=== PATIENT | female | born 1955 | race Caucasian/White ===

== ENCOUNTER 2023-10-23 05:35 | Day surgery (SDC) | payer MEDICARE, BC ==
[2023-10-10 10:34] VITALS: BP 165/92
[~2023-10-23] VITALS: Ht 167.6 cm; Wt 102.7 kg
[~2023-10-23 05:35] MED LIST: ASPIRIN EC81 MG PO; CALCIUM-MAGNES1 EAC1 PO; CALCIUM500 MG PO; IRON325 M1 PO; LACTATED RINGER'S 1,000 ML IV SCH; LISINOPRIL-HCT1 EAC1 PO; LORATADINE10 MG PO; MEGANATURAL-BP150 MG PO; MULTIVITAMINS1 EAC8 PO; PRAVACHOL40 MG PO; PRESERVISION A1 EAC3 PO; TOPROL XL25 MG PO; VITAMIN C500 M1 PO; VITAMIN E400 UNI1 PO
[2023-10-23 06:04] VITALS: BP 125/62
[2023-10-23] MEDS ORDERED: CEFAZOLIN SODIUM 2 GM/20 ML SYR ONE (06:24)
[2023-10-23] MEDS ORDERED: DEXAMETHASONE SOD PHOS 4 MG/ML VIAL ONE ×2 (06:40→07:23)
[2023-10-23] MEDS ORDERED: LIDOCAINE HCL 2% 5 ML SDV ONE (06:40)
[2023-10-23] MEDS ORDERED: dexmedeTOMIDine HCl 200 MCG/2 ML VIAL ONE (06:40)
[2023-10-23] MEDS ORDERED: MIDAZOLAM HCL 2 MG/2 ML VIAL ONE (06:40)
[2023-10-23] MEDS ORDERED: propofoL 200 MG/20 ML VIAL ONE ×2 (06:40→08:03)
[2023-10-23] MEDS ORDERED: SODIUM CHLORIDE 0.9% 20 ML IV ONE (06:41)
[2023-10-23] MEDS ORDERED: Ropivacaine HCl 0.5% 30 ML VIAL ONE (06:41)
[2023-10-23] MEDS ORDERED: PANTOPRAZOLE SODIUM 40 MG TABEC PO SCH (07:00)
[2023-10-23] MEDS ORDERED: ROPIVACAINE IN 0.9% SOD CHL/PF 545 ML ELS.PMP.HR IRRIGATION SCH (07:00)
[2023-10-23] MEDS ORDERED: OXYCODONE HCL 5 MG TAB PO PRN (07:00)
[2023-10-23] MEDS ORDERED: OXYCODONE HCL 5 MG TAB PO SCH (07:00)
[2023-10-23] MEDS ORDERED: GABAPENTIN 600 MG TAB PO SCH (07:00)
[2023-10-23] MEDS ORDERED: CEFAZOLIN SODIUM 2 GM/20 ML SYR IV SCH ×2 (07:00→15:00)
[2023-10-23] MEDS ORDERED: LIDOCAINE HCL 1% 5 ML SDV INJ ONE (07:00)
[2023-10-23] MEDS ORDERED: TRANEXAMIC ACID 2,000 MG in SODIUM CHLORIDE 0.9% 100 ML IV SCH (07:00)
[2023-10-23] MEDS ORDERED: ondansetron HCL 4 MG TAB PO SCH (07:00)
[2023-10-23] MEDS ORDERED: IBLOOD GLUCOSE TEST STRIP 1 EA TEST VI PRN (07:00)
[2023-10-23] MEDS ORDERED: KETOROLAC TROMETHAMINE 30 MG/ML VIAL IV PRN (07:00)
[2023-10-23] MEDS ORDERED: INTRA-ARTICULAR ANALGESIC INJECTION XX SCH (07:00)
[2023-10-23] MEDS ORDERED: ePHEDrine sulfate 50 MG/ML AMP ONE (07:27)
--- NOTE | 2023-10-23 07:29 | NUR ---
UNABLE TO VISIT DURING SPIRITUAL CARE ROUNDS; PT GONE FOR PROCEDURE. PROVIDED PRAYER.
[2023-10-23] MEDS ORDERED: Ropivacaine HCl 20 MG/10 ML AMP ONE (07:37)
[2023-10-23] MEDS ORDERED: CEFUROXIME250 MG PO (08:40)
[2023-10-23] MEDS ORDERED: XARELTO10 MG PO (08:41)
[2023-10-23] MEDS ORDERED: ACETAMINOPHEN500 MG PO (08:41)
[2023-10-23] MEDS ORDERED: OXYCODONE HCL5 MG PO (08:41)
[2023-10-23] MEDS ORDERED: GABAPENTIN300 MG PO (08:41)
[2023-10-23] MEDS ORDERED: GABAPENTIN 300 MG CAP PO SCH (09:00)
[2023-10-23 09:32] VITALS: BP 1114/59
--- NOTE | 2023-10-23 09:37 | NUR ---
10/23/23 0937 Nathalie Melvin 0882 PT ARRIVED IN PACU SLEEPY WITH NON C/O'S. ON QUE SET AT 4ML/HR FROM SURGERY. 0900 CRYO CUFF PLACED ON L KNEE. 914 XRAY DONE. NO C/O'S. TAKING SIPS OF WATER. 09 TO DS. REPORT GIVEN TO RN. SISTER AT BEDSIDE.
--- NOTE | 2023-10-23 09:41 | NUR ---
0932-PT BACK TO ROOM FROM PACU ON . RECEIVED REPORT FROM JOVANA POOLE. PT IS AWAKE. RESP EVEN AND UNLABORED. DENIES PAIN AND NAUSEA. DRESSING IS CLEAN, DRY, AND INTACT. CRYO CUFF IN PLACE AND RUNNING. ON-Q PUMP SET AT 4. FAMILY IN ROOM. PROIVDED PT WITH WATER. NO OTHER NEEDS AT THIS TIME. CALL LIGHT WITHIN REACH.
[2023-10-23] MEDS ORDERED: TRANEXAMIC ACID IN NACL,ISO-OS 1,000 MG/100 ML PIGGYBACK IV ONE (09:59)
[2023-10-23 10:36] VITALS: BP 126/69
--- NOTE | 2023-10-23 10:45 | NUR ---
PT LAYING IN BED TALKING WITH FAMILY. RESP EVEN AND UNLABORED. DENIES PAIN AND NAUSEA. DRESSING IS CLEAN, DRY, AND INTACT. ON-Q PUMP SET AT 4. CRYO CUFF IN PLACE AND RUNNING. PT DRINKING WATER. NO OTHER NEEDS AT THIS TIME. CALL LIGHT WITHIN REACH.
--- NOTE | 2023-10-23 11:51 | NUR ---
LE 1135-PT IN PATIENT'S ROOM. LE 1140-PT VOIDS 25ML OF YELLOW URINE.
--- NOTE | 2023-10-23 11:54 | NUR ---
PT BACK TO ROOM FROM PHYSICAL THERAPY.
[2023-10-23 11:57] VITALS: BP 118/65
--- NOTE | 2023-10-23 12:04 | NUR ---
1157-PATIENT SITTING UP IN BED. RESP EVEN AND UNLABORED. DENIES PAIN AND NAUSEA. DRESSING IS CLEAN, DRY, AND INTACT. ON-Q PUMP SET AT 4. CRYO CUFF IN PLACE AND RUNNING. LUNCH DELIVERED. WARM BLANKET PROVIDED. FAMILY IN ROOM. CALL LIGHT WITHIN REACH.
[2023-10-23 12:54] VITALS: BP 117/53
--- NOTE | 2023-10-23 12:54 | NUR ---
INTO PTS ROOM FOR ROUTINE REASSESMENT. VSS. PT DENIES PAIN WHEN ASKED WELL DENIES NAUSEA. PT HAS TOLERATED PO FLUIDS AND FOOD W/O ISSUES. PTS FRIEND/FAMILY AT BEDSIDE. ON-Q PUMP REMAINS IN PLACE. DENISEG CDI. PT ASSISTED TO EDGE OF BED AND TO STANDING POSITION WITH NURSE SBA ASSIST. PT AMBULATED WITH FWW TO RESTROOM. PT VOIDED APPROX 50ML OF CLR, YELLOW URINE. PT AMBULATED BACK TO BED WITH FWW AND NURSE SBA. FOOT PUMPS AND CRYO CUFF PLACED. HEEL PROTECTORS ALSO IN PLACE. CALL LIGHT PLACED WITHIN PT REACH. WATER REFILLED. PT DENIES ANY FURTHER NEEDS OR QUESTIONS AT THIS TIME.
[2023-10-23 14:05] VITALS: BP 108/54
--- NOTE | 2023-10-23 14:48 | OR ---
[facility] [address] [place], [place] [address] Signed DATE OF OPERATION: 10/23/2023 SURGEON: Taryn Shepard MD PREOPERATIVE DIAGNOSIS: Severe degenerative joint disease, left knee. POSTOPERATIVE DIAGNOSIS: Severe degenerative joint disease, left knee. PROCEDURE PERFORMED: Left total knee arthroplasty with Harpal. VICE PRESIDENT OF PRODUCT MARKETING: Silvia John PA-C. Silvia was present and critical for all portions of procedure. ANESTHESIA: Spinal. BLOOD LOSS: 175 mL. TOURNIQUET TIME: Zero. IMPLANTS: Rajesh Triathlon size 5 femur, 4 tibia, 10 mm polyethylene, 32 mm patella. BRIEF HISTORY: Taya is a 68-year-old female with progressive worsening of arthritis primarily in the patellofemoral medial compartments. She had failed nonoperative treatment and wished to proceed with knee replacement. Risks, benefits, and alternatives were discussed at length and she understood and wished to proceed. DESCRIPTION OF PROCEDURE: Once consent was obtained, she was taken to the operating room. After adequate anesthesia, she was placed on the operating room table with the left hip bump. The leg was prepped and draped in a standard sterile fashion. No tourniquet was placed. The knee was approached through a standard anterior midline incision, carried through the Electronically Signed By: TARYN SHEPARD MD 10/23/23 1448 PATIENT NAME: TAYA REYES OPERATIVE REPORT DATE OF : 51 REPORT #: [id number] PHYSICIAN: TARYN SHEPARD MD PCP: TERESITA VALENZUELA MD REPORT IS CONFIDENTIAL AND NOT TO BE RELEASED WITHOUT AUTHORIZATION [facility] [address], [place] [address] Signed skin and subcutaneous tissue. A low midvastus approach was undertaken and the MCL was elevated as a sleeve around to the posteromedial corner. The infrapatellar fat pad was fairly fibrotic and was removed. The patella was then mobilized laterally. The anterior horns of the menisci were transected. ACL was transected. PCL was found to be intact. The guide pin for the Harpal array was placed in the medial femoral condyle and proximal tibia. We did notice some excessive synovium in the suprapatellar pouch. On pulling on this, we delivered a large synovial mass about 3 inches across, place 6 inches along with the pedicle to anterolateral synovium. This was transected and sent off to pathology. The leg was then registered with the computer and the fine anatomic points of the knee were registered. The knee was then taken through the four poses and ligamentous laxity was assessed and adjustments were made to the tibia and femur. Once this was completed, the robot was brought in. The four straight cuts and two angle cuts were made with care taken to protect the patellar tendon and MCL. The bony remnants were removed as were any remaining osteophytes. The large posteromedial osteophyte was removed off the posterior femur. No posterior release was performed. The lateral side only had a very small osteophyte to remove. The trials were then positioned with a 10 mm polyethylene, this was switched to an 11, which gave good ligamentous stability. The leg was taken from 0 to 120 degrees of flexion with good patellar tracking. The patella was then cut sized and drilled for a 32 mm patella. The distal femoral drill holes finished and the proximal tibia was finished using the keel punch followed by the four drill holes. The prosthesis was obtained and the tibia was impacted until it was seated and flushed. The polyethylene was snapped into position and the femur was impacted until it was flushed. The knee was extended and loaded. The patella was clamped into position and the clamp was removed. Again, patellar tracking was checked and found to be adequate. The knee was then irrigated with Irrisept followed by normal saline. The periarticular soft tissues were injected with 100 mL of ropivacaine and Toradol mixture. The On-Q pain pump was percutaneously placed into the adductor canal from the suprapatellar pouch. The arthrotomy was then closed using #2 FiberWire followed by #2 Stratafix, subcutaneous tissue with 0 Stratafix and the skin with 3-0 Stratafix. Wound was sealed with LiquiBand and Steri-Strips. The wound was dressed with Acticoat-7 dressing, ABD, and David wrap. She tolerated the procedure well. All sponge, needle, and instrument counts were correct. Taryn Shepard MD BA/MODL /[id number] Electronically Signed By: TARYN SHEPARD MD 10/23/23 1448 PATIENT NAME: TAYA REYES OPERATIVE REPORT DATE OF : 51 REPORT #: [id number] PHYSICIAN: TARYN SHEPARD MD PCP: TERESITA VALENZUELA MD REPORT IS CONFIDENTIAL AND NOT TO BE RELEASED WITHOUT AUTHORIZATION [address] [address] Signed Copies: ~ Electronically Signed By: TARYN SHEPARD MD 10/23/23 1448 PATIENT NAME: TAYA REYES OPERATIVE REPORT DATE OF : 51 REPORT #: [id number] PHYSICIAN: TARYN SHEPARD MD PCP: TERESITA VALENZUELA MD REPORT IS CONFIDENTIAL AND NOT TO BE RELEASED WITHOUT AUTHORIZATION
[2023-10-23] MEDS ORDERED: ACETAMINOPHEN 500 MG TAB PO SCH (15:00)
--- NOTE | 2023-10-23 15:09 | NUR ---
LE 1345 PT AMBULATES WITH WALKER TO RESTROOM. PT VOIDS 300ML OF YELLOW URINE LE 1350-PT BACK TO ROOM. PATIENT GETTING DRESSED. CALL LIGHT WITHIN REACH.
--- NOTE | 2023-10-23 15:11 | NUR ---
1405-PATEINT SITTING IN BED DRESSED. RESP EVEN AND UNLABORED. DENIES PAIN AND NAUSEA. DRESSING IS CLEAN, DRY, AND INTACT. ON-Q PUMP SET AT 4. 1420-WENT OVER DISCHARGE INSTRUCTIONS WITH PT. ALL QUESTIONS ANSWERD. WENT OVER ALL DISCHARGE MEDICATIONS. PATIENT HAS OCCASIONAL PAIN WITH POSITION CHANGES. PATIENT WILL WAIT FOR RIDE. 1445-PT FAMILY HAS ARRIVED. PT AMBULATES WITH WALKER TO WHEELCHAIR. RIDE PROVIDED TO FRONT OF HOSPITAL WHERE HER SISTER WAS WAITING WITH THE CAR.
[2023-10-24] MEDS ORDERED: Rivaroxaban 10 MG TAB PO SCH (08:00)
[2023-10-24] MEDS ORDERED: cefuroxime axetiL 250 MG TAB PO SCH (09:00)
== END 2023-10-23 14:20 | disposition home or self-care (01) ==
LOC: DS 05:35
PROVIDERS: ATTEND Specialist
PROC: 0SRD0JA Replacement of Left Knee Joint with Synthetic Substitute, Uncemented, Open Approach (ICD-10-PCS; principal; 2023-10-23 07:00)
DX: M17.12 Unilateral primary osteoarthritis, left knee (principal); G89.18 Other acute postprocedural pain; I10 Essential (primary) hypertension; E78.00 Pure hypercholesterolemia, unspecified; Z91.040 Latex allergy status; Z88.8 Allergy status to other drugs, medicaments and biological substances; Z91.048 Other nonmedicinal substance allergy status; Z79.899 Other long term (current) drug therapy
CPT/HCPCS: 73560; A9270; J0690; J1100; J2001; J2250; J2704; J2795; J7121; J7999